=== PATIENT | male | born 1970 | race Caucasian/White ===

== ENCOUNTER 2019-03-09 14:29 | Inpatient (IN) | payer OTHER ==
[~2019-03-09] VITALS: Ht 170.2 cm; Wt 117.5 kg
[2019-03-17] MEDS ORDERED: LIPITOR40 MG PO (14:01)
[2019-03-17] MEDS ORDERED: LOSARTAN-HCTZ1 EAC1 PO (14:01)
[2019-03-17] MEDS ORDERED: METOPROLOL SUCC50 MG PO (14:01)
[2019-03-17] MEDS ORDERED: TRAZODONE HCL100 MG PO (14:02)
[2019-03-17] MEDS ORDERED: CLONAZEPAM2 MG PO (14:02)
[2019-03-17] MEDS ORDERED: BREO ELLIPTA I1 EACH IH (14:02)
[2019-03-17] MEDS ORDERED: FENOFIBRATE160 MG PO (14:02)
[2019-03-17] MEDS ORDERED: LANTUS SOL100 UNIT/1 SUBCUTANEO (14:03)
[2019-03-17] MEDS ORDERED: ABATINEX PO (14:04)
[2019-03-24] MEDS ORDERED: ABATINEX680 MG PO (07:57)
== END 2019-03-27 17:00 | disposition home or self-care (01) | DRG 330 ==
LOC: EDSTATUS 03-17 08:45 → ADM 03-17 08:45 → O/R 03-24 05:57 → SURH 03-24 05:57 → O/R 03-24 07:00 → SURH 03-24 14:12
PROVIDERS: ADMIT Colon & Rectal Surgery
PROC: 0DJD8ZZ Inspection of Lower Intestinal Tract, Via Natural or Artificial Opening Endoscopic (ICD-10-PCS; 2019-03-24)
PROC: 4A12X4Z Monitoring of Cardiac Electrical Activity, External Approach (ICD-10-PCS; 2019-03-24)
PROC: 0DTN4ZZ Resection of Sigmoid Colon, Percutaneous Endoscopic Approach (ICD-10-PCS; principal; 2019-03-24 07:00)
DX: K57.20 Diverticulitis of large intestine with perforation and abscess without bleeding (principal); K92.1 Melena; I11.9 Hypertensive heart disease without heart failure; E78.00 Pure hypercholesterolemia, unspecified; E11.9 Type 2 diabetes mellitus without complications; G47.33 Obstructive sleep apnea (adult) (pediatric); J45.20 Mild intermittent asthma, uncomplicated; E66.01 Morbid (severe) obesity due to excess calories; M10.9 Gout, unspecified

== ENCOUNTER 2020-04-15 09:04 | Day surgery (SDC) | payer OTHER ==
[~2020-04-15 09:04] MED LIST: ABATINEX PO; ABATINEX680 MG PO; BREO ELLIPTA I1 EACH IH; CLONAZEPAM2 MG PO; FENOFIBRATE160 MG PO; LANTUS SOL100 UNIT/1 SUBCUTANEO; LIPITOR40 MG PO; LOSARTAN-HCTZ1 EAC1 PO; METOPROLOL SUCC50 MG PO; TRAZODONE HCL100 MG PO
== END 2020-04-15 17:10 | disposition home or self-care (01) ==
LOC: AMB-ENDOS 09:04 → ADM 13:45 → AMB-ENDOS 17:10
PROVIDERS: ATTEND Colon & Rectal Surgery
DX: K57.32 Diverticulitis of large intestine without perforation or abscess without bleeding (principal); K64.1 Second degree hemorrhoids